=== PATIENT | female | born 1985 | race African-American/Black ===

== ENCOUNTER 2019-07-27 23:31 | Emergency (ER) | payer SELFPAY ==
[~2019-07-27] VITALS: Ht 190.5 cm; Wt 79.0 kg
[2019-07-28] MEDS ORDERED: azithromycin 250mg tablet PO ONE (00:10)
[2019-07-28] MEDS ORDERED: CefTRIAXone 1000mg IM Kit (w/lidocaine diluent) IM ONE (00:10)
[2019-07-28 00:23] LABS: CLARITY,URINE SLIGHTLY CLOUDY (Clear); COLOR,URINE YELLOW (Yellow); GLUCOSE, URINE NEGATIVE (Neg); KETONES,URINE NEGATIVE (Neg); LEUKOCYTE ESTERASE ,URINE NEGATIVE (Neg); NITRITES, URINE NEGATIVE (Neg); OCCULT BLOOD,URINE TRACE-INTACT (Neg); PROTEIN,URINE NEGATIVE (Neg); UROBILINOGEN,URINE 0.2 E.U/dL (0.2-1.0)
[2019-07-28 00:24] LABS: UA COLLECTION TYPE VOIDED
[2019-07-28 00:33] LABS: URINE HCG NEGATIVE (NEG)
[2019-07-28 00:48] LABS: WBC,URINE 0-4 /HPF (0-4)
[2019-07-28 00:49] LABS: BACTERIA,URINE 2+ /HPF (Neg); MUCUS STRANDS MANY /LPF (Neg); RBC,URINE 0-2 /HPF (0-2); SQUAMOUS EPITHELIAL CELL,UR MANY /LPF (FEW)
== END 2019-07-28 01:41 | disposition home or self-care (01) ==
LOC: ER 23:32
DX: N89.8 Other specified noninflammatory disorders of vagina (principal); R10.30 Lower abdominal pain, unspecified; Z20.2 Contact with and (suspected) exposure to infections with a predominantly sexual mode of transmission
CPT/HCPCS: 36415; 81001; 81025; 87210; 87491; 87591; 96372; 99283; J0696

== ENCOUNTER 2019-12-02 17:49 | Emergency (ER) | payer OTHER ==
[~2019-12-02] VITALS: Ht 188 cm; Wt 79.5 kg
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
[2019-12-02] MEDS ORDERED: azithromycin 250mg tablet PO ONE (19:35)
[2019-12-02] MEDS ORDERED: CefTRIAXone 250MG IM Kit w/LIDOcaine IM ONE (19:35)
[2019-12-02] MEDS ORDERED: ondansetron 4mg rapidly disintigrating tab PO ONE (19:35)
[2019-12-02 20:42] LABS: URINE HCG NEGATIVE (NEG)
[2019-12-02 22:14] VITALS: BP 112/80
== END 2019-12-02 21:37 | disposition home or self-care (01) ==
LOC: ER 17:49
DX: T74.21XA Adult sexual abuse, confirmed, initial encounter (principal); F17.200 Nicotine dependence, unspecified, uncomplicated; Z72.89 Other problems related to lifestyle
CPT/HCPCS: 36415; 81025; 87491; 87591; 96372; 99283; J0696